=== PATIENT | female | born 1985 | race Caucasian/White ===

== ENCOUNTER 2016-06-19 20:16 | Emergency (ER) | payer OTHER ==
[2016-06-19 20:25] VITALS: TEMP 98.1
[2016-06-19] MEDS ORDERED: TDAP ADULT 0.5 ML INJ (BOOSTRIX) IM ONE (20:40)
--- NOTE | 2016-06-19 20:49 | EDPHY ---
H & P Time Seen by Provider: 06/19/16 20:24 HPI/ROS: CHIEF COMPLAINT: Left foot injury HISTORY OF PRESENT ILLNESS: 30-year-old female presents to the emergency department by private vehicle with injury to her left foot. The patient was at work and had a heavy bread machine fall directly onto her left foot. The incident happened just prior to arrival she sustained an abrasion to the top of her foot. She denies any other trauma or injury. She is unable to bear weight secondary to pain. She is unsure of her last tetanus shot. ROS: Denies numbness or tingling in her toes, pain in her left ankle or calf. Past Medical/Surgical History: Negative Social History: Single and lives in [place] and works as a cooking chef at [employer] Physical Exam: On examination the patient has superficial abrasions to the dorsal aspect of the left foot. There is diffuse tenderness with palpation across the metatarsals. No rotational deformities noted. She is able to fully dorsi and plantar flex although full dorsiflexion causes pain. Her left ankle is nontender. She has pain with palpation to the plantar aspect of her left foot as well. Normal sensation to light touch with normal 2 point discrimination. Strong dorsalis pedis pulse on the dorsal aspect of the left foot. Constitutional: Initial Vital Signs Temperature (C) 36.7 C 06/19/16 20:22 Heart Rate 92 06/19/16 20:22 Respiratory Rate 20 06/19/16 20:22 Blood Pressure 132/86 H 06/19/16 20:22 O2 Sat (%) 97 06/19/16 20:22 O2 Delivery Mode Room Air Allergies/Adverse Reactions: No Known Allergies Allergy (Unverified 06/19/16 20:22) Home Medications: Medication Instructions Recorded Hydrocodone/APAP 5/325 [[place] 1 each PO Q4-6PRN PRN #11 tab 06/19/16 5/325 (*)] MDM/Departure - MDM Diagnostics: X-rays of the left foot reveal no fractures. This is reviewed by myself the PAC system as well as by the radiologist. Procedures: Patient was placed in a postop shoe and examined post application in good placement with normal SUPERVISOR WINTER. Medications Given: Discontinued Medications Hydrocodone Bitart/Acetaminophen ([place] 5/325mg Prepack#6) 1 btl [facility] Stop: 06/19/16 21:56 Last Admin: 06/19/16 22:06 Dose: 1 btl Diphtheria/Tetanus/Acell Pertussis (Boostrix) 0.5 ml IM .ONCE ONE Stop: 06/19/16 20:41 Last Admin: 06/19/16 20:53 Dose: 0.5 ml ED Course/Re-evaluation: 30-year-old female presents with left foot injury. X-rays reveal no fractures. She was placed in a postop shoe, given crutches and given orthopedic referral. - Depart Disposition: Home, Routine, Self-Care Clinical Impression: Contusion of left foot Qualifiers: Encounter type: initial encounter Qualified Code(s): S90.32XA - Contusion of left foot, initial encounter Abrasion of left foot Qualifiers: Encounter type: initial encounter Qualified Code(s): S90.812A - Abrasion, left foot, initial encounter Condition: Good Instructions: Foot Contusion (ED), Abrasion (ED), Acute Wounds (ED) Additional Instructions: You were given a tetanus shot today in the emergency department. 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 Postop shoe for comfort and support. Weightbear as tolerated or use crutches. Ibuprofen 600 mg every 8 hours as needed for pain. Return to the emergency department if you develop numbness or tingling in her toes, increasing pain, or if you feel worse in any way. Prescriptions: Hydrocodone/APAP 5/325 [[place] 5/325 (*)] 1 each PO Q4-6PRN PRN #11 tab PRN Reason: Pain, Severe Referrals: Gurvinder Serrato MD [Medical Doctor] - 5-7 days, call for appt. (Orthopedic surgeon on-call)
[2016-06-19] MEDS ORDERED: HYDROCOD/APAP 5/325 PREPACK#6 BTL TAKEHOME ONE (21:55)
[2016-06-19 22:12] VITALS: BP 129/81; PULSE 68; RESP 16; O2SAT 98
== END 2016-06-19 22:22 | disposition home or self-care (01) ==
DX: S90.32XA Contusion of left foot, initial encounter (principal); S90.812A Abrasion, left foot, initial encounter; Z23 Encounter for immunization; W20.8XXA Other cause of strike by thrown, projected or falling object, initial encounter; Y92.69 Other specified industrial and construction area as the place of occurrence of the external cause; Y93.89 Activity, other specified

== ENCOUNTER 2018-04-05 03:11 | Emergency (ER) | payer OTHER ==
[2018-04-05] MEDS ORDERED: NS 1,000 ML IV ONE (03:14)
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
[2018-04-05 03:36] LABS: PLATELET COUNT 243 10^3/uL (150-400)
--- NOTE | 2018-04-05 07:11 | CPEKG ---
Test Reason : OPEN Blood Pressure : / mmHG Vent. Rate : 096 BPM Atrial Rate : 096 BPM P-R Int : 142 ms QRS Dur : 092 ms QT Int : 347 ms P-R-T Axes : 066 076 022 degrees QTc Int : 439 ms Sinus rhythm Confirmed by Manjinder Montero ([id number]) on 04/05/2018 7:10:34 AM Referred By: Confirmed By:Manjinder Montero
[2018-04-05 10:26] VITALS: BP 122/77
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
== END 2018-04-05 10:25 | disposition home or self-care (01) ==
LOC: EDUNIT#
PROC: GZ11ZZZ Psychological Tests, Personality and Behavioral (ICD-10-PCS; principal; 2018-04-05)
DX: R45.851 Suicidal ideations (principal); T50.901A Poisoning by unspecified drugs, medicaments and biological substances, accidental (unintentional), initial encounter; F32.9 Major depressive disorder, single episode, unspecified
CPT/HCPCS: 80305; G0480